=== PATIENT | male | born 1975 ===

== ENCOUNTER 2017-09-30 04:54 | Inpatient (IN) | payer BC, MEDICAID, OTHER ==
[2017-09-30 04:54] VITALS: BMI 27.3
--- NOTE | 2017-09-30 05:18 | C.PDOC ---
History Of Present Illness <Debi Ho - Last Filed: 09/30/17 06:57> <Jonnie Martin M - Last Filed: 09/30/17 13:24> 42 year old male with psychiatric history presents to the ED for evaluation of depression and suicidal ideation. Pt reports that he was recently voluntarily admitted for psychiatric evaluation at [facility] (formerly [facility]) and was discharged 2 days ago. Patient notes that his suicidal ideation has not changed. He admits suicidal plan, by copy reader. He notes that he has history of suicide attempts. He states that he has been increasingly depressed over the past 2 years. He has been noncompliant with his psychiatric medications for 2 months. He admits alcohol, last drink last night. He also admits to PCP use, last use yesterday. No auditory hallucinations. (Debi Ho) History Per: Patient History/Exam Limitations: no limitations Onset/Duration Of Symptoms: Persistent Current Symptoms Are (Timing): Still Present Suicide/Self Injury Attempted (Context): Cut Wrists Associated Symptoms: Depression, Suicidal Thoughts, Suicidal Plan ( by copy reader) <Debi Ho - Last Filed: 09/30/17 06:57> <Jonnie Martin M - Last Filed: 09/30/17 13:24> Chief Complaint (Nursing): Psychiatric Evaluation Past Medical History Reviewed: Historical Data, Nursing Documentation, Vital Signs - Medical History PMH: Anxiety, Bipolar Disorder, Depression, Personality Disorder, Post Traumatic Stress Disorder Denies: Asthma, Diabetes, Hepatitis, HIV, HTN, Chronic Kidney Disease, Seizures, Sexually Transmitted Disease Surgical History: Appendectomy Family History: States: Unknown Family Hx - Social History Hx Tobacco Use: Yes Hx Alcohol Use: No Hx Substance Use: Yes (PCP, Cocaine) - Immunization History Hx Tetanus Toxoid Vaccination: No Hx Influenza Vaccination: No Hx Pneumococcal Vaccination: No <Debi Ho - Last Filed: 09/30/17 06:57> Vital Signs: Last Vital Signs Temp 97.8 F 09/30/17 08:50 Pulse 83 09/30/17 08:50 Resp 18 09/30/17 08:50 BP 103/67 09/30/17 08:50 Pulse Ox 97 09/30/17 08:50 - [facility] Procedures GROUP PSYCHOTHERAPY (09/26/17) INDIVIDUAL PSYCHOTHERAPY, BEHAVIORAL (09/26/17) INDIVIDUAL PSYCHOTHERAPY, COGNITIVE-BEHAVIORAL (10/25/15) INDIVIDUAL PSYCHOTHERAPY, SUPPORTIVE (03/12/16) Review Of Systems Constitutional: Negative for: Fever, Chills ENT: Negative for: Ear Pain, Throat Pain Cardiovascular: Negative for: Chest Pain Respiratory: Negative for: Shortness of Breath Gastrointestinal: Negative for: Nausea, Vomiting, Abdominal Pain, Diarrhea Skin: Negative for: Rash Neurological: Negative for: Headache Psych: Positive for: Depression, Suicidal ideation, Other (Substance abuse ) <Debi Ho - Last Filed: 09/30/17 06:57> Physical Exam - Physical Exam Appears: Well, No Acute Distress Skin: Normal Color, Warm, Dry, Other (No evidence of IV drug use) Head: Atraumatic, Normacephalic Eye(s): bilateral: Normal Inspection, PERRL, EOMI Oral Mucosa: Moist Tongue: Normal Appearing Lips: Normal Appearing Throat: Normal Neck: Normal, Normal ROM, Supple Cardiovascular: Rhythm Regular Respiratory: Normal Breath Sounds Gastrointestinal/Abdominal: Soft, No Tenderness Back: Normal Inspection Extremity: Normal ROM, No Deformity Neurological/Psych: Oriented x3, Normal Speech, Other (Flat affect) <Debi Ho - Last Filed: 09/30/17 06:57> ED Course And Treatment - Laboratory Results Result Diagrams: 09/30/17 05:38 09/30/17 05:38 ECG: Interpreted By Pr ECG Rhythm: Sinus Rhythm ECG Interpretation: Normal, No Acute Changes O2 Sat by Pulse Oximetry: 95 <Debi Ho - Last Filed: 09/30/17 06:57> - Laboratory Results Result Diagrams: 09/30/17 05:38 09/30/17 05:38 <Jonnie Martin - Last Filed: 09/30/17 13:24> Medical Decision Making <Debi Ho - Last Filed: 09/30/17 06:57> <Jonnie Martin M - Last Filed: 09/30/17 13:24> Medical Decision Making: Impression: suicidal ideation, depression Will start screening blood work, and have patient evaluated by crisis. (Debi Ho) Disposition <Debi Ho - Last Filed: 09/30/17 06:57> Discussed With : Rohit Hurt Doctor Will See Patient In The: Hospital Counseled Patient/Family Regarding: Studies Performed, Diagnosis - Disposition Disposition Time: 13:24 <Jonnie Martin - Last Filed: 09/30/17 13:24> - Disposition Disposition: HOSPITALIZED Condition: FAIR Forms: [facility] (Uzbek) - Clinical Impression Clinical Impression: Single major depressive episode, severe, with psychosis - Scribe Statement The provider has reviewed the documentation as recorded by the Scribe <Debi Ho - Last Filed: 09/30/17 06:57> <Jonnie Martin - Last Filed: 09/30/17 13:24> - Scribe Statement The provider has reviewed the documentation as recorded by the Scribe (Florentin Goodwin) (Debi Ho) Provider Attestation: All medical record entries made by the Scribe were at my direction and personally dictated by me. I have reviewed the chart and agree that the record accurately reflects my personal performance of the history, physical exam, medical decision making, and the department course for this patient. I have also personally directed, reviewed, and agree with the discharge instructions and disposition. (Debi Ho) Addendum <Debi Ho - Last Filed: 09/30/17 06:57> <Jonnie Martin - Last Filed: 09/30/17 13:24> Addendum: 09/30/17 13:23 received patient in s/o pending labs and crisis evaluation. patient evaluated by crisis and will be admitted to Dr. Hurt's service (Jonnie Martin)
[2017-09-30 05:41] LABS: BASO # 0.1 K/uL (0.0-0.2); BASO % 0.7 % (0.0-2.0); EOS # 0.2 K/uL (0.0-0.7); EOS % 1.6 % (0.0-4.0); HEMOGLOBIN 16.7 g/dL (12.0-18.0); LYMPH # 2.9 K/uL (1.0-4.3); LYMPH % 24.8 % (20.0-40.0); MEAN CELL VOLUME 86.7 fL (80.0-94.0); MEAN CORPUSCULAR HEMOGLOBIN 29.4 pg (27.0-31.0); MEAN CORPUSCULAR HGB CONC 33.9 g/dL (33.0-37.0); MONO # 1.3 K/uL (0.0-0.8); MONO % 11.2 % (0.0-10.0); NEUT # 7.2 K/uL (1.8-7.0); NEUT % 61.7 % (50.0-75.0); NRBC % 0.1 % (0.0-2.0); RBC 5.68 Mil/uL (4.40-5.90); RED CELL DISTRIBUTION WIDTH 13.7 % (11.5-14.5); WHITE BLOOD COUNT 11.7 K/uL (4.8-10.8)
[2017-09-30 06:13] LABS: ALB/GLOB RATIO 1.3 (1.0-2.1); ALBUMIN 4.7 g/dL (3.5-5.0); ALT/SGPT 34 U/L (21-72); AST/SGOT 44 U/L (17-59); BLOOD UREA NITROGEN 14 mg/dL (9-20); CALCIUM 9.4 mg/dl (8.6-10.4); GFR AFRICAN-AMERICAN > 60; GFR NON-AFRICAN AMERICAN > 60
[2017-09-30 08:51] VITALS: O2SAT 97
[2017-09-30 10:37] LABS: SQUAMOUS EPITHIAL < 1 /hpf (0-5); URINE BILIRUBIN NEGATIVE (NEGATIVE); URINE BLOOD NEGATIVE (NEGATIVE); URINE CLARITY Hazy (Clear); URINE COLOR Yellow (YELLOW); URINE GLUCOSE (UA) NORMAL (Normal); URINE LEUKOCYTE ESTERASE NEG Leu/uL (Negative); URINE NITRATE NEGATIVE (NEGATIVE); URINE PROTEIN NEGATIVE (NEGATIVE)
[2017-09-30 11:05] LABS: BARBITURATES, UR NEGATIVE (NEGATIVE); OPIATES, UR NEGATIVE (NEGATIVE)
[2017-09-30 11:34] LABS: PHENCYCLIDINE, UR POSITIVE (NEGATIVE)
[2017-09-30 11:55] LABS: BENZODIAZEPINES, UR NEGATIVE (NEGATIVE)
--- NOTE | 2017-09-30 14:41 | PCM.BM ---
<Shante Arana - Last Filed: 09/30/17 14:39> Treatment Plan Problems - Problems identified on initial assessmt Depression Date Initiated: 09/30/17 Time Initiated: 14:39 Assessment reference: NA Status: Active Substance Abuse Date Initiated: 09/30/17 Time Initiated: 14:39 Assessment reference: NA Status: Active Treatment assets and liabiliti Patient Assests: cooperative, educated, ADL independent, physically healthy, negotiates basic needs, cognitively intact Patient Liabilities: live alone (lives with ), financial problems, substance abuse (PCP, Cocaine) - Milieu Protocol Maintain good personal hygiene: daily Encourage regular showers, daily Remind patient to perform daily oral care, daily Assist patient to perform ADL's (Self) Conduct patient checks and document Observation sheet: Q15 minutes (For safety) Maintain personal safety: every shift Educate patient to report safety concerns to staff, every shift Monitor environment for contraband/sharps Medication safety: Monitor for expected outcome, potential side effects: every shift, Assess barriers to learning: every shift, Assess readiness for medication education: every shift <Mary Beth Baires - Last Filed: 10/01/17 10:35> Family Contact Family involvement: Family/SO is involved Family contact: Patient declines to allow family contact at present - Goals for Treatment Patient goals for treatment: 'I want to go home soon.' Discharge/Continuing Care - Education Needs Education Needs: Patient Medication, Patient Coping Skills, Patient Placement options, Patient Community resources - Discharge Discharge Criteria: Tolerates medication w/o severe side effects, No longer exhibiting s/s of withdrawal, Reduction of target symptoms Discharge to:: Home, With Family - Treatment Team Participation Discussed with Family/SO: No Was Patient/Family/SO present at Treatment Team Meeting: Yes
[2017-10-01 05:58] VITALS: RESP 20
--- NOTE | 2017-10-01 11:58 | CARD ---
APPROVED REPORT EKG Measurement Heart [id number] 138P-2 [id number] <Conclusion> Normal sinus rhythm Normal ECG
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
[2017-10-02 09:12] VITALS: BP 105/65; PULSE 70; TEMP 97.8
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
[2017-10-03] MEDS ORDERED: Influenza Vaccine 60 mcg/0.5 mL SYR (4YR UP) IM ONE (10:00)
[2017-10-03] MEDS ORDERED: Pneumococcal 23-Valent Vaccine IM ONE (10:00)
== END 2017-10-02 11:16 | disposition left against medical advice (07) | DRG 885 ==
LOC: C.ER 04:54 → C.5E 13:21
PROVIDERS: ADMIT Psychiatry & Neurology Psychiatry; ATTEND Psychiatry & Neurology Psychiatry
PROC: GZ3ZZZZ Medication Management (ICD-10-PCS; principal; 2017-09-30)
PROC: GZHZZZZ Group Psychotherapy (ICD-10-PCS; 2017-09-30)
PROC: GZ56ZZZ Individual Psychotherapy, Supportive (ICD-10-PCS; 2017-09-30)
PROC: HZ89ZZZ Medication Management for Substance Abuse Treatment, Other Replacement Medication (ICD-10-PCS; 2017-09-30)
PROC: HZ90ZZZ Pharmacotherapy for Substance Abuse Treatment, Nicotine Replacement (ICD-10-PCS; 2017-09-30)
DX: F33.2 Major depressive disorder, recurrent severe without psychotic features (principal); F14.90 Cocaine use, unspecified, uncomplicated; F16.10 Hallucinogen abuse, uncomplicated; F17.210 Nicotine dependence, cigarettes, uncomplicated; G47.00 Insomnia, unspecified; F41.9 Anxiety disorder, unspecified; G47.10 Hypersomnia, unspecified; Z91.5 Personal history of self-harm

== ENCOUNTER 2018-05-28 20:14 | Emergency (ER) | payer MEDICAID, OTHER ==
[2018-05-28 20:15] VITALS: BMI 27.3
--- NOTE | 2018-05-28 20:41 | C.PDOC ---
History Of Present Illness 43 y/o male presents to the ED via EMS for psychiatric evaluation. On arrival, patient states he called 911 because he needed help. He then told medics he wanted to shoot himself. Currently patient is still admitting to having suicidal and homicidal ideations. Also admits to PCP use earlier today. All other history is limited as patient is combative, uncooperative, spitting at staff. <Serena Montana - Last Filed: 05/28/18 20:47> History Per: Patient History/Exam Limitations: intoxication Onset/Duration Of Symptoms: Hrs Current Symptoms Are (Timing): Still Present Suicide/Self Injury Attempted (Context): None Modifying Factor(s): Other (PCP) Associated Symptoms: Suicidal Thoughts Involuntary Hold By: None Additional History Per: EMS <Serena Montana - Last Filed: 05/28/18 20:47> <Nigel Finnegan DO - Last Filed: 05/31/18 18:49> Time Seen by Provider: 05/28/18 20:24 Chief Complaint (Nursing): Psychiatric Evaluation Past Medical History Reviewed: Historical Data, Nursing Documentation, Vital Signs - Medical History PMH: Anxiety, Bipolar Disorder, Depression, Personality Disorder, Post Traumatic Stress Disorder Denies: Asthma, Diabetes, Hepatitis, HIV, HTN, Chronic Kidney Disease, Seizures, Sexually Transmitted Disease Surgical History: Appendectomy - [facility] Procedures GROUP PSYCHOTHERAPY (09/30/17) INDIVIDUAL PSYCHOTHERAPY, BEHAVIORAL (09/26/17) INDIVIDUAL PSYCHOTHERAPY, COGNITIVE-BEHAVIORAL (10/25/15) INDIVIDUAL PSYCHOTHERAPY, SUPPORTIVE (09/30/17) MEDICATION MANAGEMENT (09/30/17) MEDS MGMT FOR SUBSTANCE ABUSE TREATMENT, OTH REPL MED (09/30/17) PHARMACOTHERAPY FOR SUBSTANCE ABUSE, NICOTINE REPLACE (09/30/17) Family History: States: Unknown Family Hx - Social History Hx Tobacco Use: Yes Hx Alcohol Use: Yes Hx Substance Use: Yes (PCP) - Immunization History Hx Tetanus Toxoid Vaccination: No Hx Influenza Vaccination: No Hx Pneumococcal Vaccination: No <Serena Montana - Last Filed: 05/28/18 20:47> Vital Signs: Last Vital Signs Temp 98.6 F 05/28/18 20:40 Pulse 82 05/29/18 02:23 Resp 18 05/29/18 02:23 BP 124/69 05/29/18 02:23 Pulse Ox 97 05/29/18 02:23 - [facility] Procedures GROUP PSYCHOTHERAPY (09/30/17) INDIVIDUAL PSYCHOTHERAPY, BEHAVIORAL (09/26/17) INDIVIDUAL PSYCHOTHERAPY, COGNITIVE-BEHAVIORAL (10/25/15) INDIVIDUAL PSYCHOTHERAPY, SUPPORTIVE (09/30/17) MEDICATION MANAGEMENT (09/30/17) MEDS MGMT FOR SUBSTANCE ABUSE TREATMENT, OTH REPL MED (09/30/17) PHARMACOTHERAPY FOR SUBSTANCE ABUSE, NICOTINE REPLACE (09/30/17) <Nigel Finnegan DO - Last Filed: 05/31/18 18:49> Review Of Systems Review Of Systems: ROS cannot be obtained secondary to pt's inabilty to answer questions. Psych: Positive for: Suicidal ideation (and homicidal ideation) <Serena Montana Last Filed: 05/28/18 20:47> Physical Exam - Physical Exam Appears: Non-toxic, No Acute Distress Skin: Warm, Dry Head: Atraumatic, Normacephalic Eye(s): bilateral: Normal Inspection, EOMI Neck: Normal ROM Chest: Symmetrical Cardiovascular: Rhythm Regular, No Murmur Respiratory: No Rales, No Rhonchi, No Wheezing Extremity: Bilateral: Atraumatic, Normal Color And Temperature Pulses: Left Dorsalis Pedis: Normal, Right Dorsalis Pedis: Normal Neurological/Psych: Other (Agitated, uncooperative, responsive to certain qu estions) <Serena Montana Last Filed: 05/28/18 20:47> ED Course And Treatment - Laboratory Results Result Diagrams: 05/28/18 20:41 05/28/18 20:41 Progress Note: Patient cleared for discharge by Dr. Hurt with referral to outpatient psych services. <Nigel Finnegan DO - Last Filed: 05/31/18 18:49> Medical Decision Making Medical Decision Making: Impression: Psych eval, SI/HI Plan: --CMP --Magnesium --Phosphorous --Alcohol serum --Urine drug screen --Urinalysis Patient became increasingly agitated and combative upon arrival. Given haldol and ativan. [address] for safety of patient and staff. <Serena Montana Filed: 05/28/18 20:47> Disposition <Serena Montana Filed: 05/28/18 20:47> - Disposition Disposition Time: 21:00 <Nigel Finnegan DO - Last Filed: 05/31/18 18:49> - Disposition Referrals: Kendy Wadr, [Non-Staff] - Disposition: HOME/ ROUTINE Condition: IMPROVED Additional Instructions: POLI HUNT, thank you for letting us take care of you today. The emergency medical care you received today was directed at your acute symptoms. If you were prescribed any medication, please fill it and take as directed. It may take several days for your symptoms to resolve. Return to the Emergency Department if your symptoms worsen, do not improve, or if you have any other problems. Please contact your doctor or call one of the physicians/clinics you have been referred to that are listed on the Patient Visit Information form that is included in your discharge packet. Bring any paperwork you were given at discharge with you along with any medications you are taking to your follow up visit. Our treatment cannot replace ongoing medical care by a primary care provider outside of the emergency department. Thank you for allowing the [facility] team to be part of your care today. Follow up with psychiatry as instructed by our psychiatric team for outpatient re-evaluation and management. Instructions: Depression, Polysubstance Abuse (DC) Forms: [facility] [employer] (Telugu) - Clinical Impression Clinical Impression: Depression, Polysubstance abuse - Scribe Statement The provider has reviewed the documentation as recorded by the Scribe (Qing Sheikh) Provider Attestation: All medical record entries made by the Scribe were at my direction and personally dictated by me. I have reviewed the chart and agree that the record accurately reflects my personal performance of the history, physical exam, medical decision making, and the department course for this patient. I have also personally directed, reviewed, and agree with the discharge instructions and disposition. <Serena Montana - Last Filed: 05/28/18 20:47>
[2018-05-28 20:48] VITALS: TEMP 98.6
[2018-05-28 20:48] LABS: BASO # 0.1 K/uL (0.0-0.2); BASO % 0.8 % (0.0-2.0); EOS # 0.3 K/uL (0.0-0.7); EOS % 1.9 % (0.0-4.0); HEMOGLOBIN 16.2 g/dL (12.0-18.0); LYMPH # 4.6 K/uL (1.0-4.3); MEAN CELL VOLUME 86.4 fL (80.0-94.0); MEAN CORPUSCULAR HEMOGLOBIN 29.3 pg (27.0-31.0); MEAN CORPUSCULAR HGB CONC 33.9 g/dL (33.0-37.0); MEAN PLATELET VOLUME 8.5 fL (7.2-11.7); MONO # 1.8 K/uL (0.0-0.8); MONO % 11.9 % (0.0-10.0); NEUT # 8.1 K/uL (1.8-7.0); NEUT % 54.4 % (50.0-75.0); NRBC % 0.1 % (0.0-2.0); RBC 5.54 Mil/uL (4.40-5.90); RED CELL DISTRIBUTION WIDTH 13.7 % (11.5-14.5)
[2018-05-28 20:58] LABS: SQUAMOUS EPITHIAL < 1 /hpf (0-5); URINE BILIRUBIN NEGATIVE (NEGATIVE); URINE BLOOD NEGATIVE (NEGATIVE); URINE CLARITY Clear (Clear); URINE COLOR Yellow (YELLOW); URINE GLUCOSE (UA) NORMAL (Normal); URINE LEUKOCYTE ESTERASE NEG Leu/uL (Negative); URINE PROTEIN NEGATIVE (NEGATIVE)
[2018-05-28 21:05] LABS: ALB/GLOB RATIO 1.6 (1.0-2.1); ALBUMIN 5.1 g/dL (3.5-5.0); ALT/SGPT 33 U/L (21-72); AST/SGOT 29 U/L (17-59); BLOOD UREA NITROGEN 18 mg/dL (9-20); CALCIUM 9.8 mg/dl (8.6-10.4); GFR NON-AFRICAN AMERICAN > 60
[2018-05-28 21:30] LABS: BARBITURATES, UR NEGATIVE (NEGATIVE); BENZODIAZEPINES, UR NEGATIVE (NEGATIVE); OPIATES, UR NEGATIVE (NEGATIVE)
[2018-05-28 21:32] LABS: PHENCYCLIDINE, UR POSITIVE (NEGATIVE)
[2018-05-28 23:25] VITALS: O2SAT 97
[2018-05-29 02:23] VITALS: BP 124/69; PULSE 82; RESP 18
== END 2018-05-29 04:20 | disposition home or self-care (01) ==
LOC: C.ER 20:14
DX: F32.9 Major depressive disorder, single episode, unspecified (principal); F19.10 Other psychoactive substance abuse, uncomplicated
CPT/HCPCS: 80053; 80320; 80324; 80345; 80346; 80349; 80353; 80358; 80361; 81001; 83735; 83992; 84100; 85025; 96372; 99284; J1630; J2060